=== PATIENT | female | born 2000 | race Hispanic/Latino ===

== ENCOUNTER 2022-10-07 02:09 | Inpatient (IN) | payer OTHER ==
[2022-10-07 02:33] LABS: Analyzer IN Cardio ER; Base Excess (BEa) -28.3 mEq/L (-2.0 to +3.0); CO2 Tension 53.3 mmHg (35.0-45.0); Carboxyhemoglobin (COHb) 0.2 gm% (0.0-3.0); Hemoglobin (Hb) 10.2 g/dL (11.4-15.4); O2 Tension (PaO2), arterial 467.9 mmHg (80.0-100.0); Potassium - ABG Lab 4.56 mmol/L (3.70-5.30)
[2022-10-07] MEDS ORDERED: Sodium Bicarb 50 MEQ/50 ML Abboject 8.4% SYRINGE ONE (02:35)
[2022-10-07] MEDS ORDERED: Calcium Chloride 1 GM/10 ML Abboject SYRINGE ONE ×3 (02:35→07:36)
[2022-10-07 02:38] LABS: #Basophils 0.1 thou/uL (0.0-0.2); #Eosinphils 0.2 thou/uL (0.0-0.7); #Lymphocytes 4.7 thou/uL (1.20-3.40); #Monocytes 0.3 thou/uL (0.11-0.59); #Neutrophils 6.3 thou/uL (1.40-6.50); %Basophils 0.6 % (0.0-1.0); %Eosinophils 2.1 % (0.0-10.0); %Lymphocytes 40.2 % (28.0-48.0); %Monocytes 2.8 % (0.0-4.0); %Neutrophils 54.3 % (31.0-61.0); Hemoglobin 10.9 g/dL (12.0-16.0); Mean Corpuscular HGB CONC 31.3 g/dL (32.0-36.0); Mean Corpuscular Volume 89.5 fl (78.0-102.0); Mean Platelet Volume 10.4 fL (7.4-10.4); Platelet Count 86 10x3/uL (130-400); RBC Distribution Width 18.7 % (11.5-14.5); Red Blood Cell (RBC) Count 3.89 mill/uL (4.00-5.20); White Blood Cell (WBC) Count 11.7 10x3/uL (4.8-10.8)
[2022-10-07] MEDS ORDERED: Midazolam HCl 2 mg/2 ml Vial ONE ×2 (02:38→04:38)
[2022-10-07 02:43] LABS: Actual Bicarbonate (HCO3a) 6.8 mEq/L (22-28); Calcium, Ionized (arterial) 0.72 mmol/L (1.12-1.30); pH, Arterial 6.73 (7.35-7.45)
[2022-10-07 02:44] LABS: ALV-art Gradient 178.475 mmHg (0-20); Puncture Site RBA
[2022-10-07] MEDS ORDERED: Fentanyl CADD 100 ML IV SCH (02:45)
[2022-10-07 02:46] LABS: BHCG - Serum Negative (NEGATIVE); Pregs Control Background? CLEAR/WHITE (CLR/WHITE); Pregs Control Bar Appear? YES (CONTROL BAR)
[2022-10-07 02:48] LABS: INR-International Normal Ratio 1.8; Prothrombin Time 21.7 sec (12.0-14.7)
[2022-10-07 02:49] LABS: PTT 91.9 sec (22.9-36.1)
[2022-10-07 02:55] LABS: ALT (SGPT) 135 U/L (8-55); AST (SGOT) 193 U/L (5-30); Albumin 1.8 g/dL (3.5-5.0); Alkaline Phosphatase 44 U/L (40-100); BUN (Urea Nitrogen) 6 mg/dL (8.4-21.0); Bilirubin, Total Less than 0.2 mg/dL (0.2-1.2); Calc. Creatinine Clearance 0 mL/min (70-130); Chloride 121 mmol/L (98-107); Estimated GFR 120; Globulin 1.5 g/dL (2.4-3.5); Glucose 144 mg/dL (70-105); Protein, Total 3.3 g/dL (6.0-8.3); Sodium 142 mmol/L (136-145)
[2022-10-07 02:59] LABS: Calcium 6.8 mg/dL (7.8-10.44); Carbon Dioxide Less than 8 mmol/L (22-29)
[2022-10-07] MEDS ORDERED: Acetaminophen 325 MG TAB PO PRN (03:24)
[2022-10-07] MEDS ORDERED: Dextrose 5% in Water 1,000 ML IV PRN ×2 (03:24→07:49)
[2022-10-07] MEDS ORDERED: hydrALAZINE 20 MG/ML VIAL SLOW IVP PRN (03:24)
[2022-10-07] MEDS ORDERED: Ondansetron PF 4 MG/2 ML Vial IVP PRN (03:24)
[2022-10-07] MEDS ORDERED: TETANUS, DIPHTHERIA TOX,ADULT (TDVAX) 0.5 ML VIAL IM ONE (03:24)
[2022-10-07] MEDS ORDERED: Dextrose 50% Abboject 50 ML SYRINGE SLOW IVP PRN ×2 (03:24→07:49)
[2022-10-07 03:54] LABS: Analyzer IN Cardio ER; Base Excess (BEa) -19.5 mEq/L (-2.0 to +3.0); CO2 Tension 25.5 mmHg (35.0-45.0); Calcium, Ionized (arterial) 1.47 mmol/L (1.12-1.30); Carboxyhemoglobin (COHb) 0.2 gm% (0.0-3.0); Hemoglobin (Hb) 7.9 g/dL (11.4-15.4); O2 Tension (PaO2), arterial 251.6 mmHg (80.0-100.0); Potassium - ABG Lab 3.91 mmol/L (3.70-5.30)
[2022-10-07] MEDS ORDERED: Lidocaine 1% (PF) 30 ML VIAL ONE (03:59)
[2022-10-07 04:00] LABS: ALV-art Gradient 73.025 mmHg (0-20); Actual Bicarbonate (HCO3a) 8.1 mEq/L (22-28); Puncture Site LBA; pH, Arterial 7.12 (7.35-7.45)
[2022-10-07 04:13] LABS: Hemoglobin 7.5 g/dL (12.0-16.0); Mean Corpuscular HGB CONC 30.9 g/dL (32.0-36.0); Mean Corpuscular Hemoglobin 29.7 pg (25.0-35.0); Mean Corpuscular Volume 96.1 fl (78.0-98.0); Mean Platelet Volume 9.6 fL (7.4-10.4); Platelet Count 65 10x3/uL (130-400); RBC Distribution Width 17.6 % (11.5-14.5); Red Blood Cell (RBC) Count 2.53 mill/uL (4.00-5.20); White Blood Cell (WBC) Count 11.2 10x3/uL (4.8-10.8)
[2022-10-07 04:37] LABS: BUN (Urea Nitrogen) 9 mg/dL (7.0-18.7); Calc. Creatinine Clearance 0 mL/min (70-130); Calcium 11.1 mg/dL (7.8-10.44); Carbon Dioxide Less than 8 mmol/L (22-29); Chloride 115 mmol/L (98-107); Estimated GFR 79; Glucose 93 mg/dL (70-105); Potassium 3.9 mmol/L (3.5-5.1); Sodium 143 mmol/L (136-145)
[2022-10-07 05:01] LABS: Anisocytosis SLIGHT = 6-15 cells (100X) (0-5/hpf); Band 17 % (5-11); Crenated RBC SLIGHT = 1-5 cells (100X) (None Seen); Eosinophils 1 % (0-10); Lymphocytes 35 % (28-48); MDiff Complete? YES; Metamyelocyte 2 % (0-0); Neutrophil 45 % (31-61); Nucleated RBC 2 % (0); Platelet Morphology Comment Appears Decreased; Polychromasia SLIGHT = 2-3 cells (100X) (0-2/hpf)
[2022-10-07] MEDS ORDERED: Norepinephrine 4 MG/4 ML VIAL ONE (05:04)
[2022-10-07] MEDS ORDERED: HUM PROTHROMBIN CPLX(PCC)4FACT 1,000 UNIT in Admixture Fee 1 EACH IV SCH (06:45)
[2022-10-07] MEDS ORDERED: Rocuronium Bromide 10 MG/ML (10ML VIAL) ONE (06:51)
[2022-10-07] MEDS ORDERED: Albumin 5% 500 ML ONE (06:57)
[2022-10-07] MEDS ORDERED: fentaNYL PF 100 MCG/2 ML SYRINGE ONE (07:00)
[2022-10-07] MEDS ORDERED: Sodium Bicarb 50 MEQ/50 ML VIAL ONE (07:36)
[2022-10-07 08:33] LABS: Actual Bicarbonate (HCO3a) 15.3 mEq/L (22-28); Base Excess (BEa) -10.7 mEq/L (-2.0 to +3.0); CO2 Tension 34.6 mmHg (35.0-45.0); Calcium, Ionized (arterial) 1.16 mmol/L (1.12-1.30); Carboxyhemoglobin (COHb) 0.3 gm% (0.0-3.0); Hemoglobin (Hb) 9.5 g/dL (11.4-15.4); O2 Tension (PaO2), arterial 515.5 mmHg (80.0-100.0); Potassium - ABG Lab 3.57 mmol/L (3.70-5.30); pH, Arterial 7.26 (7.35-7.45)
[2022-10-07 08:36] LABS: Puncture Site Arterial Line
[2022-10-07 08:47] LABS: #Lymphocytes 1.6 thou/uL (1.20-3.40); #Neutrophils 10.6 thou/uL (1.40-6.50); %Basophils 0.2 % (0.0-1.0); %Eosinophils 0.1 % (0.0-10.0); %Lymphocytes 11.8 % (28.0-48.0); %Monocytes 7.6 % (0.0-4.0); %Neutrophils 80.3 % (31.0-61.0); Hemoglobin 9.1 g/dL (12.0-16.0); INR-International Normal Ratio 1.5; Mean Corpuscular HGB CONC 32.8 g/dL (32.0-36.0); Mean Corpuscular Hemoglobin 29.5 pg (25.0-35.0); Mean Corpuscular Volume 89.9 fl (78.0-98.0); Mean Platelet Volume 8.1 fL (7.4-10.4); PTT 51.4 sec (22.9-36.1); Platelet Count 73 10x3/uL (130-400); RBC Distribution Width 14.1 % (11.5-14.5); Red Blood Cell (RBC) Count 3.07 mill/uL (4.00-5.20); White Blood Cell (WBC) Count 13.2 10x3/uL (4.8-10.8)
[2022-10-07 09:41] LABS: Base Excess (BEa) -10.7 mEq/L (-2.0 to +3.0); CO2 Tension 27.6 mmHg (35.0-45.0); Calcium, Ionized (arterial) 1.12 mmol/L (1.12-1.30); Carboxyhemoglobin (COHb) 0.3 gm% (0.0-3.0); Hemoglobin (Hb) 9.1 g/dL (11.4-15.4); O2 Tension (PaO2), arterial 143.7 mmHg (80.0-100.0); pH, Arterial 7.33 (7.35-7.45)
[2022-10-07 09:57] LABS: Actual Bicarbonate (HCO3a) 14.1 mEq/L (22-28); Puncture Site Arterial Line
[2022-10-07 10:21] LABS: Lactic Acid 11.5 mmol/L (0.5-2.2)
[2022-10-07 10:36] LABS: ALT (SGPT) 235 U/L (8-55); AST (SGOT) 421 U/L (5-34); Albumin 3.2 g/dL (3.5-5.0); Alkaline Phosphatase 57 U/L (40-100); Anion Gap 24 mmol/L (10-20); BUN (Urea Nitrogen) 13 mg/dL (7.0-18.7); Bilirubin, Direct 0.2 mg/dL (0.1-0.3); Bilirubin, Total 0.3 mg/dL (0.2-1.2); Calc. Creatinine Clearance 0 mL/min (70-130); Calcium 8.9 mg/dL (7.8-10.44); Carbon Dioxide 14 mmol/L (22-29); Chloride 117 mmol/L (98-107); Estimated GFR 64; Glucose 66 mg/dL (70-105); Magnesium 1.6 mg/dL (1.7-2.2); Phosphorus 5.8 mg/dL (2.3-4.7); Potassium 3.5 mmol/L (3.5-5.1); Protein, Total 4.8 g/dL (6.0-8.3); Sodium 151 mmol/L (136-145)
[2022-10-07] MEDS: Sodium Chloride 0.9% 1,000 ML IV SCH ×2 (10:45→13:05)
[2022-10-07] MEDS: Famotidine 20 MG TAB PO SCH ×2 (10:46→21:57)
[2022-10-07] MEDS ORDERED: Iopamidol 370 76% 50 ML VIAL FS ONE (11:08)
[2022-10-07] MEDS ORDERED: Iopamidol 370 76% 100 ML VIAL ONE (11:08)
[2022-10-07 11:20] LABS: Actual Bicarbonate (HCO3a) 15.7 mEq/L (22-28); Base Excess (BEa) -7.8 mEq/L (-2.0 to +3.0); CO2 Tension 25.3 mmHg (35.0-45.0); Carboxyhemoglobin (COHb) 0.3 gm% (0.0-3.0); Hemoglobin (Hb) 8.5 g/dL (11.4-15.4); O2 Tension (PaO2), arterial 150.3 mmHg (80.0-100.0); pH, Arterial 7.41 (7.35-7.45)
[2022-10-07 11:28] LABS: ALV-art Gradient 103.275 mmHg (0-20); Puncture Site Arterial Line
[2022-10-07] MEDS: CEFAZOLIN 2 GM in Sodium Chloride 0.9% 100 ML IVPB SCH ×2 (12:26→21:58)
[2022-10-07] MEDS ORDERED: Sodium Bicarbonate 150 MEQ in Dextrose 5% in Water 1,000 ML IV SCH (12:30)
[2022-10-07] MEDS ORDERED: Magnesium Sulfate In Water 4 GM in Premix Bag 1 BAG IVPB SCH (12:30)
[2022-10-07] MEDS: Morphine 4 MG/ML VIAL SLOW IVP PRN ×2 (12:34→15:09)
[2022-10-07 12:53] LABS: Hemoglobin 7.8 g/dL (12.0-16.0); Mean Corpuscular HGB CONC 34.4 g/dL (32.0-36.0); Mean Corpuscular Hemoglobin 30.2 pg (25.0-35.0); Mean Corpuscular Volume 87.6 fl (78.0-98.0); Mean Platelet Volume 9.3 fL (7.4-10.4); Platelet Count 68 10x3/uL (130-400); RBC Distribution Width 14.4 % (11.5-14.5); White Blood Cell (WBC) Count 19.6 10x3/uL (4.8-10.8)
[2022-10-07 13:01] LABS: SARS-CoV-2 NAA Rapid Test Not Detected (NotDetected)
[2022-10-07 13:15] LABS: Band 13 % (5-11); Lymphocytes 11 % (28-48); MDiff Complete? YES; Metamyelocyte 2 % (0-0); Monocytes 1 % (0-4); Neutrophil 73 % (31-61); Nucleated RBC 1 % (0); Platelet Morphology Comment Appears Decreased; Polychromasia SLIGHT = 2-3 cells (100X) (0-2/hpf)
[2022-10-07] MEDS ORDERED: Iopamidol-370 76% 500 ML 1 ML ONE ×2 (13:15→13:21)
[2022-10-07] MEDS ORDERED: FLU VACC QS2022-23(6MOS UP)/PF 60 MCG/0.5 ML SYRINGE IM ONE (13:45)
[2022-10-07 14:43] LABS: Troponin I 4.524 ng/mL (< 0.028)
[2022-10-07] MEDS ORDERED: Piperacillin/Tazobactam 3.375 GM in Sodium Chloride 0.9% 100 ML IVPB SCH ×2 (15:15→16:15)
[2022-10-07 17:32] LABS: Actual Bicarbonate (HCO3a) 12.6 mEq/L (22-28); Base Excess (BEa) -13.8 mEq/L (-2.0 to +3.0); CO2 Tension 31.2 mmHg (35.0-45.0); Hemoglobin (Hb) 8.2 g/dL (11.4-15.4); O2 Tension (PaO2), arterial 363.1 mmHg (80.0-100.0); pH, Arterial 7.22 (7.35-7.45)
[2022-10-07 17:33] LABS: Analyzer IN Cardio OR; Calcium, Ionized (arterial) 0.98 mmol/L (1.12-1.30); Carboxyhemoglobin (COHb) 0.3 gm% (0.0-3.0); Potassium - ABG Lab 3.43 mmol/L (3.70-5.30); Puncture Site Arterial Line
[2022-10-07 18:21] LABS: Hemoglobin 9.8 g/dL (12.0-16.0); Mean Corpuscular HGB CONC 34.6 g/dL (32.0-36.0); Mean Corpuscular Hemoglobin 30.4 pg (25.0-35.0); Mean Corpuscular Volume 87.7 fl (78.0-98.0); Mean Platelet Volume 10.3 fL (7.4-10.4); Platelet Count 46 10x3/uL (130-400); Red Blood Cell (RBC) Count 3.24 mill/uL (4.00-5.20); White Blood Cell (WBC) Count 20.9 10x3/uL (4.8-10.8)
[2022-10-07 18:33] LABS: INR-International Normal Ratio 1.4
[2022-10-07 18:56] LABS: Band 22 % (5-11); Lymphocytes 8 % (28-48); MDiff Complete? YES; Metamyelocyte 1 % (0-0); Monocytes 2 % (0-4); Neutrophil 67 % (31-61); Nucleated RBC 3 % (0); Platelet Morphology Comment Appears Decreased; Polychromasia SLIGHT = 2-3 cells (100X) (0-2/hpf)
[2022-10-07 18:59] LABS: ALT (SGPT) 219 U/L (8-55); AST (SGOT) 858 U/L (5-34); Alkaline Phosphatase 58 U/L (40-100); Anion Gap 19 mmol/L (10-20); BUN (Urea Nitrogen) 21 mg/dL (7.0-18.7); Bilirubin, Total 0.7 mg/dL (0.2-1.2); Calc. Creatinine Clearance 52 mL/min (70-130); Carbon Dioxide 18 mmol/L (22-29); Chloride 117 mmol/L (98-107); Estimated GFR 34; Globulin 1.9 g/dL (2.4-3.5); Glucose 137 mg/dL (70-105); Magnesium 3.1 mg/dL (1.7-2.2); Phosphorus 6.6 mg/dL (2.3-4.7); Potassium 3.8 mmol/L (3.5-5.1); Protein, Total 4.9 g/dL (6.0-8.3); Sodium 150 mmol/L (136-145)
[2022-10-07 19:09] LABS: CK (CPK) 18632 U/L (29-168)
[2022-10-07 19:34] LABS: Troponin I 3.487 ng/mL (< 0.028)
[2022-10-07 21:21] LABS: Hemoglobin 9.7 g/dL (12.0-16.0); Mean Corpuscular HGB CONC 34.1 g/dL (32.0-36.0); Mean Corpuscular Hemoglobin 29.9 pg (25.0-35.0); Mean Corpuscular Volume 87.5 fl (78.0-98.0); Mean Platelet Volume 11.1 fL (7.4-10.4); Platelet Count 45 10x3/uL (130-400); RBC Distribution Width 14.1 % (11.5-14.5); Red Blood Cell (RBC) Count 3.26 mill/uL (4.00-5.20); White Blood Cell (WBC) Count 22.4 10x3/uL (4.8-10.8)
[2022-10-07 21:22] LABS: Band 21 % (5-11); Lymphocytes 8 % (28-48); MDiff Complete? YES; Metamyelocyte 1 % (0-0); Monocytes 5 % (0-4); Neutrophil 65 % (31-61); Platelet Morphology Comment Appears Decreased; RBC Morphology Normal
[2022-10-07] MEDS: Piperacillin/Tazobactam 3.375 GM in Sodium Chloride 0.9% 100 ML IVPB SCH (21:58)
[2022-10-07] MEDS: Insulin Regular 300 UNITS/3 ML VIAL SC PRN (21:58)
[2022-10-08 01:47] LABS: Band 28 % (5-11); Hemoglobin 9.8 g/dL (12.0-16.0); Hypochromia SLIGHT = 6-15 cells (100X) (0-5/hpf); Lymphocytes 10 % (28-48); MDiff Complete? YES; Mean Corpuscular HGB CONC 34.3 g/dL (32.0-36.0); Mean Corpuscular Hemoglobin 30.1 pg (25.0-35.0); Mean Corpuscular Volume 87.7 fl (78.0-98.0); Mean Platelet Volume 12.1 fL (7.4-10.4); Monocytes 4 % (0-4); Neutrophil 58 % (31-61); Platelet Count 43 10x3/uL (130-400); Platelet Morphology Comment Appears Decreased; RBC Distribution Width 14.2 % (11.5-14.5); Red Blood Cell (RBC) Count 3.26 mill/uL (4.00-5.20); White Blood Cell (WBC) Count 22.7 10x3/uL (4.8-10.8)
[2022-10-08] MEDS: Dextrose 5 %-0.45 % NaCl 1,000 ML IV SCH ×2 (04:39→16:21)
[2022-10-08] MEDS: Insulin Regular 300 UNITS/3 ML VIAL SC PRN ×3 (04:40→16:47)
[2022-10-08] MEDS: CEFAZOLIN 2 GM in Sodium Chloride 0.9% 100 ML IVPB SCH (05:15)
[2022-10-08] MEDS: Piperacillin/Tazobactam 3.375 GM in Sodium Chloride 0.9% 100 ML IVPB SCH ×3 (05:15→20:57)
[2022-10-08 05:28] LABS: INR-International Normal Ratio 1.3; Mean Corpuscular HGB CONC 33.7 g/dL (32.0-36.0); Mean Corpuscular Hemoglobin 29.5 pg (25.0-35.0); Mean Corpuscular Volume 87.7 fl (78.0-98.0); Mean Platelet Volume 7.3 fL (7.4-10.4); PTT 35.4 sec (22.9-36.1); Platelet Count 44 10x3/uL (130-400); Prothrombin Time 17.1 sec (12.0-14.7); RBC Distribution Width 14.4 % (11.5-14.5); Red Blood Cell (RBC) Count 3.38 mill/uL (4.00-5.20); White Blood Cell (WBC) Count 24.2 10x3/uL (4.8-10.8)
[2022-10-08 05:37] LABS: Anion Gap 14 mmol/L (10-20); BUN (Urea Nitrogen) 22 mg/dL (7.0-18.7); Calc. Creatinine Clearance 53 mL/min (70-130); Carbon Dioxide 24 mmol/L (22-29); Chloride 119 mmol/L (98-107); Estimated GFR 35; Glucose 161 mg/dL (70-105); Magnesium 2.8 mg/dL (1.7-2.2); Phosphorus 5.1 mg/dL (2.3-4.7); Potassium 3.5 mmol/L (3.5-5.1); Sodium 153 mmol/L (136-145)
[2022-10-08 06:03] LABS: Band 32 % (5-11); Hypochromia SLIGHT = 6-15 cells (100X) (0-5/hpf); Lymphocytes 10 % (28-48); MDiff Complete? YES; Monocytes 2 % (0-4); Neutrophil 56 % (31-61); Platelet Morphology Comment Appears Decreased
[2022-10-08] MEDS ORDERED: NOREPINEPHRINE 8 MG/250 ML-D5W 250 ML ONE (07:02)
[2022-10-08] MEDS ORDERED: NOREPINEPHRINE 8 MG/250 ML-D5W 250 ML IVPB SCH (07:15)
[2022-10-08] MEDS ORDERED: Albumin 5% 500 ML ONE (07:21)
[2022-10-08] MEDS ORDERED: ALBUMIN 5% 25 GM/500 ML BAG IVPB SCH (08:30)
[2022-10-08] MEDS: Levothyroxine Sodium 400 MCG in Sodium Chloride 0.9% 100 ML IVPB SCH ×2 (09:11→21:09)
[2022-10-08 09:12] LABS: Hemoglobin 8.2 g/dL (12.0-16.0); Mean Corpuscular HGB CONC 34.9 g/dL (32.0-36.0); Mean Corpuscular Hemoglobin 31.2 pg (25.0-35.0); Mean Corpuscular Volume 89.5 fl (78.0-98.0); RBC Distribution Width 14.5 % (11.5-14.5); Red Blood Cell (RBC) Count 2.63 mill/uL (4.00-5.20)
[2022-10-08 09:39] LABS: Band 5 % (5-11); Lymphocytes 4 % (28-48); MDiff Complete? YES; Mean Platelet Volume 12.6 fL (7.4-10.4); Monocytes 8 % (0-4); Neutrophil 83 % (31-61); Platelet Count 38 10x3/uL (130-400); Platelet Morphology Comment Appears Decreased; White Blood Cell (WBC) Count 20.2 10x3/uL (4.8-10.8)
[2022-10-08 10:25] VITALS: BMI 27.5
[2022-10-08] MEDS: Famotidine 20 MG TAB PO SCH ×2 (10:54→20:57)
[2022-10-08 12:18] LABS: #Lymphocytes 1.6 thou/uL (1.20-3.40); #Monocytes 0.6 thou/uL (0.11-0.59); #Neutrophils 12.2 thou/uL (1.40-6.50); %Lymphocytes 10.9 % (28.0-48.0); %Monocytes 3.8 % (0.0-4.0); %Neutrophils 85.3 % (31.0-61.0); Hemoglobin 7.5 g/dL (12.0-16.0); Mean Corpuscular HGB CONC 34.4 g/dL (32.0-36.0); Mean Corpuscular Hemoglobin 30.7 pg (25.0-35.0); Mean Corpuscular Volume 89.3 fl (78.0-98.0); Mean Platelet Volume 12.3 fL (7.4-10.4); Platelet Count 30 10x3/uL (130-400); RBC Distribution Width 14.5 % (11.5-14.5); Red Blood Cell (RBC) Count 2.43 mill/uL (4.00-5.20); White Blood Cell (WBC) Count 14.3 10x3/uL (4.8-10.8)
[2022-10-08] MEDS: Sodium Bicarbonate 150 MEQ in Dextrose 5% in Water 1,000 ML IV SCH ×2 (14:34→21:48)
[2022-10-08 16:42] LABS: #Lymphocytes 1.7 thou/uL (1.20-3.40); #Monocytes 0.4 thou/uL (0.11-0.59); #Neutrophils 10.3 thou/uL (1.40-6.50); %Basophils 0.2 % (0.0-1.0); %Eosinophils 0.2 % (0.0-10.0); %Lymphocytes 13.8 % (28.0-48.0); %Neutrophils 82.9 % (31.0-61.0); Hemoglobin 7.2 g/dL (12.0-16.0); Mean Corpuscular HGB CONC 33.7 g/dL (32.0-36.0); Mean Corpuscular Hemoglobin 29.9 pg (25.0-35.0); Mean Corpuscular Volume 88.6 fl (78.0-98.0); Mean Platelet Volume 13.3 fL (7.4-10.4); Platelet Count 24 10x3/uL (130-400); RBC Distribution Width 14.4 % (11.5-14.5); Red Blood Cell (RBC) Count 2.42 mill/uL (4.00-5.20); White Blood Cell (WBC) Count 12.4 10x3/uL (4.8-10.8)
[2022-10-09 00:54] LABS: #Eosinphils 0.2 thou/uL (0.0-0.7); #Lymphocytes 1.8 thou/uL (1.20-3.40); #Monocytes 0.4 thou/uL (0.11-0.59); #Neutrophils 7.4 thou/uL (1.40-6.50); %Basophils 0.4 % (0.0-1.0); %Eosinophils 1.6 % (0.0-10.0); %Lymphocytes 18.4 % (28.0-48.0); %Monocytes 4.4 % (0.0-4.0); %Neutrophils 75.3 % (31.0-61.0); Hemoglobin 7.8 g/dL (12.0-16.0); Mean Corpuscular HGB CONC 34.7 g/dL (32.0-36.0); Mean Corpuscular Hemoglobin 31.1 pg (25.0-35.0); Mean Corpuscular Volume 89.8 fl (78.0-98.0); Mean Platelet Volume 14.1 fL (7.4-10.4); Platelet Count 17 10x3/uL (130-400); RBC Distribution Width 13.9 % (11.5-14.5); Red Blood Cell (RBC) Count 2.51 mill/uL (4.00-5.20); White Blood Cell (WBC) Count 9.9 10x3/uL (4.8-10.8)
[2022-10-09] MEDS: Levothyroxine Sodium 400 MCG in Sodium Chloride 0.9% 100 ML IVPB SCH ×2 (01:47→05:32)
[2022-10-09 03:27] VITALS: BP 102/52
[2022-10-09] MEDS: Piperacillin/Tazobactam 3.375 GM in Sodium Chloride 0.9% 100 ML IVPB SCH (04:17)
[2022-10-09 05:28] LABS: Lactic Acid 2.2 mmol/L (0.5-2.2)
[2022-10-09] MEDS: Sodium Bicarbonate 150 MEQ in Dextrose 5% in Water 1,000 ML IV SCH (05:32)
[2022-10-09 05:58] LABS: CK (CPK) 12108 U/L (29-168)
[2022-10-09 05:59] LABS: Anion Gap 11 mmol/L (10-20); BUN (Urea Nitrogen) 22 mg/dL (7.0-18.7); Calc. Creatinine Clearance 69 mL/min (70-130); Calcium 7.5 mg/dL (7.8-10.44); Carbon Dioxide 27 mmol/L (22-29); Chloride 118 mmol/L (98-107); Estimated GFR 47; Glucose 144 mg/dL (70-105); Magnesium 2.4 mg/dL (1.7-2.2); Phosphorus 2.9 mg/dL (2.3-4.7); Potassium 2.8 mmol/L (3.5-5.1); Sodium 153 mmol/L (136-145)
[2022-10-09 06:27] LABS: Band 13 % (5-11); Eosinophils 3 % (0-10); Hemoglobin 7.4 g/dL (12.0-16.0); Lymphocytes 20 % (28-48); MDiff Complete? YES; Mean Corpuscular HGB CONC 33.7 g/dL (32.0-36.0); Mean Corpuscular Hemoglobin 30.3 pg (25.0-35.0); Mean Corpuscular Volume 89.8 fl (78.0-98.0); Mean Platelet Volume 14.8 fL (7.4-10.4); Monocytes 5 % (0-4); Neutrophil 59 % (31-61); Nucleated RBC 1 % (0); Platelet Count 15 10x3/uL (130-400); Platelet Morphology Comment Appears Decreased; RBC Morphology Normal; Red Blood Cell (RBC) Count 2.46 mill/uL (4.00-5.20); White Blood Cell (WBC) Count 8.9 10x3/uL (4.8-10.8)
[2022-10-09 06:51] LABS: Actual Bicarbonate (HCO3a) 29.5 mEq/L (22-28); CO2 Tension 38.4 mmHg (35.0-45.0); Calcium, Ionized (arterial) 1.07 mmol/L (1.12-1.30); Carboxyhemoglobin (COHb) 0.2 gm% (0.0-3.0); Hemoglobin (Hb) 7.6 g/dL (11.4-15.4); O2 Tension (PaO2), arterial 137.5 mmHg (80.0-100.0)
[2022-10-09 06:55] LABS: Potassium - ABG Lab 2.54 mmol/L (3.70-5.30)
[2022-10-09 06:56] LABS: Puncture Site Arterial Line
[2022-10-09] MEDS ORDERED: Potassium Chloride 40 MEQ in Sodium Chloride 0.9% 250 ML 250 ML IVPB SCH (08:00)
[2022-10-09 08:25] LABS: Mean Corpuscular HGB CONC 33.7 g/dL (32.0-36.0); Mean Corpuscular Hemoglobin 30.5 pg (25.0-35.0); Mean Corpuscular Volume 90.6 fl (78.0-98.0); Mean Platelet Volume 15.2 fL (7.4-10.4); Platelet Count 17 10x3/uL (130-400); RBC Distribution Width 14.1 % (11.5-14.5); Red Blood Cell (RBC) Count 2.61 mill/uL (4.00-5.20); White Blood Cell (WBC) Count 10.3 10x3/uL (4.8-10.8)
[2022-10-09] MEDS ORDERED: Potassium Chloride 40 MEQ in Premix Bag 1 BAG IVPB SCH (08:30)
[2022-10-09] MEDS ORDERED: Potassium Chloride 60 MEQ in Sodium Chloride 0.9% 250 ML 250 ML IVPB SCH (08:30)
[2022-10-09] MEDS ORDERED: Sodium Bicarbonate 100 MEQ in Dextrose 5% in Water 1,000 ML IV SCH (08:30)
[2022-10-09 09:17] LABS: #Eosinphils 0.3 thou/uL (0.0-0.7); #Lymphocytes 1.3 thou/uL (1.20-3.40); #Monocytes 0.4 thou/uL (0.11-0.59); #Neutrophils 8.2 thou/uL (1.40-6.50); %Basophils 0.4 % (0.0-1.0); %Eosinophils 3.2 % (0.0-10.0); %Neutrophils 79.5 % (31.0-61.0); Band 40 % (5-11); Eosinophils 4 % (0-10); Lymphocytes 13 % (28-48); MDiff Complete? YES; Monocytes 6 % (0-4); Neutrophil 37 % (31-61); Platelet Morphology Comment Appears Decreased; Polychromasia SLIGHT = 2-3 cells (100X) (0-2/hpf)
[2022-10-09 10:07] VITALS: TEMP 98.1
[2022-10-09] MEDS ORDERED: Famotidine/PF 20 mg/2ml Vial SLOW IVP SCH ×2 (11:00→21:00)
[2022-10-09] MEDS: Famotidine 20 MG TAB PO SCH (11:38)
== END 2022-10-09 11:53 | disposition expired | DRG 957 ==
LOC: ERS 02:09 → EDBD 02:09 → CCL 04:56 → UNDOADMIN 07:52 → CCU 07:52
PROVIDERS: ADMIT Specialist; ATTEND Surgery
PROC: 0JQ00ZZ Repair Scalp Subcutaneous Tissue and Fascia, Open Approach (ICD-10-PCS; principal; 2022-10-07)
PROC: 04LF3DZ Occlusion of Left Internal Iliac Artery with Intraluminal Device, Percutaneous Approach (ICD-10-PCS; 2022-10-07)
PROC: 04LE3DZ Occlusion of Right Internal Iliac Artery with Intraluminal Device, Percutaneous Approach (ICD-10-PCS; 2022-10-07)
PROC: B4101ZZ Fluoroscopy of Abdominal Aorta using Low Osmolar Contrast (ICD-10-PCS; 2022-10-07)
PROC: B41J1ZZ Fluoroscopy of Other Lower Arteries using Low Osmolar Contrast (ICD-10-PCS; 2022-10-07)
PROC: 05H633Z Insertion of Infusion Device into Left Subclavian Vein, Percutaneous Approach (ICD-10-PCS; 2022-10-07)
PROC: 30233K1 Transfusion of Nonautologous Frozen Plasma into Peripheral Vein, Percutaneous Approach (ICD-10-PCS; 2022-10-07)
PROC: 30233N1 Transfusion of Nonautologous Red Blood Cells into Peripheral Vein, Percutaneous Approach (ICD-10-PCS; 2022-10-07)
PROC: 30233M1 Transfusion of Nonautologous Plasma Cryoprecipitate into Peripheral Vein, Percutaneous Approach (ICD-10-PCS; 2022-10-07)
PROC: 6A551Z2 Pheresis of Platelets, Multiple (ICD-10-PCS; 2022-10-07)
PROC: 5A1945Z Respiratory Ventilation, 24-96 Consecutive Hours (ICD-10-PCS; 2022-10-07)
DX: S06.1X9A Traumatic cerebral edema with loss of consciousness of unspecified duration, initial encounter (principal); S32.401A Unspecified fracture of right acetabulum, initial encounter for closed fracture; D65 Disseminated intravascular coagulation [defibrination syndrome]; S72.302B Unspecified fracture of shaft of left femur, initial encounter for open fracture type I or II; I77.71 Dissection of carotid artery; T79.4XXA Traumatic shock, initial encounter; J96.00 Acute respiratory failure, unspecified whether with hypoxia or hypercapnia; S32.402A Unspecified fracture of left acetabulum, initial encounter for closed fracture; S32.19XA Other fracture of sacrum, initial encounter for closed fracture; S22.42XA Multiple fractures of ribs, left side, initial encounter for closed fracture; S32.058A Other fracture of fifth lumbar vertebra, initial encounter for closed fracture; S32.038A Other fracture of third lumbar vertebra, initial encounter for closed fracture; S15.092A Other specified injury of left carotid artery, initial encounter; D62 Acute posthemorrhagic anemia; E87.21 Acute metabolic acidosis; N17.9 Acute kidney failure, unspecified; S36.92XA Contusion of unspecified intra-abdominal organ, initial encounter; S27.322A Contusion of lung, bilateral, initial encounter; S06.6X9A Traumatic subarachnoid hemorrhage with loss of consciousness of unspecified duration, initial encounter; R40.20 Unspecified coma; S02.113A Unspecified occipital condyle fracture, initial encounter for closed fracture; I95.9 Hypotension, unspecified; S08.0XXA Avulsion of scalp, initial encounter; E87.6 Hypokalemia; E83.42 Hypomagnesemia; R40.2432 Glasgow coma scale score 3-8, at arrival to emergency department; S02.2XXA Fracture of nasal bones, initial encounter for closed fracture; S53.102A Unspecified subluxation of left ulnohumeral joint, initial encounter; Z20.822 Contact with and (suspected) exposure to COVID-19; V89.2XXA Person injured in unspecified motor-vehicle accident, traffic, initial encounter
CPT/HCPCS: 36415; 36416; 36430; 36600; 37244; 70450; 70496; 70498; 71045; 71260; 72125; 72170; 74177; 75625; 78610; 80048; 80053; 82550; 82805; 83605; 83735; 83930; 84100; 84484; 84703; 85025; 85384; 85610; 85730; 86850; 86900; 86901; 93005; 93010; 94002; 94003; A9521; C1758; C1769; G0390; J1815; J2001; J2250; J2270; J2543; J2597; J3010; J3475; J3480; J3490; J7042; J7050; J7070; J7168; P9012; P9016; P9035; P9045; P9048; P9059; Q9967; S0028; U0002

== ENCOUNTER 2022-10-09 11:53 | Day surgery (SDC) | payer OTHER ==
[2022-10-09] MEDS ORDERED: Levothyroxine Sodium 400 MCG in Sodium Chloride 0.9% 100 ML IVPB SCH (15:00)
[2022-10-09 15:36] LABS: Actual Bicarbonate (HCO3a) 27.4 mEq/L (22-28); Base Excess (BEa) 1.9 mEq/L (-2.0 to +3.0); Calcium, Ionized (arterial) 1.12 mmol/L (1.12-1.30); Carboxyhemoglobin (COHb) 0.1 gm% (0.0-3.0); Hemoglobin (Hb) 8.9 g/dL (11.4-15.4); O2 Tension (PaO2), arterial 103.3 mmHg (80.0-100.0); Potassium - ABG Lab 3.71 mmol/L (3.70-5.30); pH, Arterial 7.38 (7.35-7.45)
[2022-10-09 15:37] LABS: Puncture Site Arterial Line
[2022-10-09] MEDS ORDERED: NOREPINEPHRINE 8 MG/250 ML-D5W 250 ML IVPB SCH (15:45)
[2022-10-09 15:54] LABS: Hemoglobin 8.6 g/dL (12.0-16.0); Mean Corpuscular HGB CONC 33.6 g/dL (32.0-36.0); Mean Corpuscular Hemoglobin 30.4 pg (25.0-35.0); Mean Corpuscular Volume 90.4 fl (78.0-98.0); Mean Platelet Volume 15.8 fL (7.4-10.4); Platelet Count 21 10x3/uL (130-400); RBC Distribution Width 14.2 % (11.5-14.5); Red Blood Cell (RBC) Count 2.84 mill/uL (4.00-5.20); White Blood Cell (WBC) Count 11.2 10x3/uL (4.8-10.8)
[2022-10-09 15:55] VITALS: BMI 28.4
[2022-10-09] MEDS ORDERED: Hydrocortisone Sod Succ/PF 500 mg/4 ml Vial SLOW IVP SCH (16:00)
[2022-10-09] MEDS ORDERED: Magnesium 2 GM/50 ML(in water) 2 GM in Premix Bag 1 BAG IVPB SCH (16:00)
[2022-10-09] MEDS ORDERED: Potassium Phosphate 30 MMOL in Sodium Chloride 0.9% 100 ML IVPB SCH (16:00)
[2022-10-09] MEDS ORDERED: Magnesium 2 GM/50 ML(in water) 4 GM in Premix Bag 1 BAG IVPB SCH (16:00)
[2022-10-09] MEDS ORDERED: SODIUM PHOSPHATE IVPB SCH (16:00)
[2022-10-09] MEDS ORDERED: SODIUM CHLORIDE 0.9% IVPB SCH ×2 (16:00)
[2022-10-09] MEDS ORDERED: HUMULIN R 100 UNITS in Sodium Chloride 0.9% 100 ML IVPB SCH (16:00)
[2022-10-09] MEDS ORDERED: Calcium Gluconate 13.8 MEQ in Sodium Chloride 0.9% 100 ML IVPB SCH (16:00)
[2022-10-09] MEDS ORDERED: Sodium Phosphate 20 MMOL in Sodium Chloride 0.9% 100 ML IVPB SCH (16:00)
[2022-10-09] MEDS ORDERED: Potassium Chloride 20 MEQ in Premix Bag 1 BAG IVPB SCH (16:00)
[2022-10-09] MEDS ORDERED: Sodium Phosphate 30 MMOL in Sodium Chloride 0.9% 100 ML IVPB SCH (16:00)
[2022-10-09] MEDS ORDERED: POTASSIUM PHOSPHATE IVPB SCH (16:00)
[2022-10-09] MEDS ORDERED: Calcium Gluconate 9.2 MEQ in Sodium Chloride 0.9% 100 ML IVPB SCH (16:00)
[2022-10-09] MEDS ORDERED: Refresh Lacri-lube Opth Oint 7 GM TUBE FS SCH (16:00)
[2022-10-09 16:05] LABS: Hemoglobin A1c 5.5 % (4.0-6.0); INR-International Normal Ratio 1.2; PTT 33.7 sec (22.9-36.1)
[2022-10-09 16:13] LABS: Lactic Acid 1.9 mmol/L (0.5-2.2)
[2022-10-09 16:15] LABS: ALT (SGPT) 676 U/L (8-55); AST (SGOT) 1060 U/L (5-34); Albumin 3.1 g/dL (3.5-5.0); Alkaline Phosphatase 62 U/L (40-100); Anion Gap 8 mmol/L (10-20); BUN (Urea Nitrogen) 17 mg/dL (7.0-18.7); Bilirubin, Total 0.7 mg/dL (0.2-1.2); Calc. Creatinine Clearance 82 mL/min (70-130); Calcium 7.9 mg/dL (7.8-10.44); Carbon Dioxide 28 mmol/L (22-29); Chloride 120 mmol/L (98-107); Estimated GFR 58; Globulin 2.2 g/dL (2.4-3.5); Glucose 155 mg/dL (70-105); Phosphorus 2.8 mg/dL (2.3-4.7); Potassium 3.8 mmol/L (3.5-5.1); Protein, Total 5.3 g/dL (6.0-8.3)
[2022-10-09 16:15] LABS: Bilirubin Negative (Negative); Blood, Urine Large (Negative); Glucose, Urine (Dipstick) 500 mg/dL (Negative); Ketone, Urine Negative (Negative); Leukocyte Negative (Negative); Nitrite Negative (Negative); Protein, Urine (Dipstick) 100 mg/dL (Neg-Trace); Specific Gravity, Urine 1.015 (1.005-1.030); Urobilinogen 0.2 mg/dL (Less than 2); pH, Urine 8.5 (5.0-9.0)
[2022-10-09 16:16] LABS: Clarity Hazy (Clear)
[2022-10-09 16:16] LABS: Bilirubin, Direct 0.3 mg/dL (0.1-0.3)
[2022-10-09 16:21] LABS: CKMB 43.3 ng/mL (0-6.6); Sodium 152 mmol/L (136-145)
[2022-10-09 16:28] LABS: Band 14 % (5-11); Lymphocytes 13 % (28-48); MDiff Complete? YES; Monocytes 3 % (0-4); Neutrophil 70 % (31-61); Platelet Morphology Comment Appears Decreased; Polychromasia SLIGHT = 2-3 cells (100X) (0-2/hpf); Spherocytes SLIGHT = 1-5 cells (100X) (None Seen); Troponin I 5.703 ng/mL (< 0.028)
[2022-10-09] MEDS: Vasopressin 20 UNIT, Admixture Fee 1 EACH in Sodium Chloride 0.9% 50 ML IV SCH (16:45)
[2022-10-09] MEDS: Phytonadione 10 MG/ML AMP SLOW IVP SCH ×2 (17:35→20:09)
[2022-10-09] MEDS: Piperacillin/Tazobactam 3.375 GM in Sodium Chloride 0.9% 100 ML IVPB SCH ×2 (17:39→23:59)
[2022-10-09] MEDS: Albuterol Sulfate 2.5 mg/0.5 ml Neb NEB SCH ×2 (19:07→23:25)
[2022-10-09] MEDS: Phenylephrine 40 MG/NS 250 ML 40 MG in Premix Bag 1 BAG IVPB SCH (20:09)
[2022-10-09] MEDS: Sodium Chloride 0.45% 1,000 ML IV SCH (20:31)
[2022-10-09 21:33] LABS: Actual Bicarbonate (HCO3a) 24.4 mEq/L (22-28); Base Excess (BEa) -1.1 mEq/L (-2.0 to +3.0); CO2 Tension 44.2 mmHg (35.0-45.0); Calcium, Ionized (arterial) 1.15 mmol/L (1.12-1.30); Carboxyhemoglobin (COHb) 0.3 gm% (0.0-3.0); Hemoglobin (Hb) 9.1 g/dL (11.4-15.4); Potassium - ABG Lab 3.47 mmol/L (3.70-5.30); pH, Arterial 7.36 (7.35-7.45)
[2022-10-09 21:34] LABS: O2 Tension (PaO2), arterial 50.9 mmHg (80.0-100.0)
[2022-10-09 21:35] LABS: Puncture Site L RAD
[2022-10-09 22:02] LABS: INR-International Normal Ratio 1.2; PTT 34.4 sec (22.9-36.1); Prothrombin Time 15.6 sec (12.0-14.7)
[2022-10-09 22:05] LABS: Lactic Acid 2.6 mmol/L (0.5-2.2)
[2022-10-09 22:11] LABS: ALT (SGPT) 782 U/L (8-55); AST (SGOT) 1030 U/L (5-34); Albumin 3.2 g/dL (3.5-5.0); Alkaline Phosphatase 64 U/L (40-100); Anion Gap 12 mmol/L (10-20); BUN (Urea Nitrogen) 15 mg/dL (7.0-18.7); Bilirubin, Direct 0.4 mg/dL (0.1-0.3); Bilirubin, Total 0.9 mg/dL (0.2-1.2); Calc. Creatinine Clearance 78 mL/min (70-130); Calcium 8.3 mg/dL (7.8-10.44); Carbon Dioxide 23 mmol/L (22-29); Chloride 122 mmol/L (98-107); Estimated GFR 55; Globulin 2.2 g/dL (2.4-3.5); Glucose 184 mg/dL (70-105); Lipase 484 U/L (8-78); Phosphorus 2.5 mg/dL (2.3-4.7); Potassium 3.6 mmol/L (3.5-5.1); Protein, Total 5.4 g/dL (6.0-8.3)
[2022-10-09 22:14] LABS: CKMB 29.6 ng/mL (0-6.6)
[2022-10-09 22:18] LABS: Critical Call Chem Troponin I RESULT DECREASING; Troponin I 3.041 ng/mL (< 0.028)
[2022-10-09 22:22] LABS: CK (CPK) Greater than 4000 U/L (29-168); Sodium 153 mmol/L (136-145)
[2022-10-09 22:23] LABS: Band 34 % (5-11); Hemoglobin 8.6 g/dL (12.0-16.0); Hypochromia SLIGHT = 6-15 cells (100X) (0-5/hpf); Lymphocytes 11 % (28-48); MDiff Complete? YES; Mean Corpuscular HGB CONC 33.1 g/dL (32.0-36.0); Mean Corpuscular Hemoglobin 29.9 pg (25.0-35.0); Mean Corpuscular Volume 90.2 fl (78.0-98.0); Mean Platelet Volume 14.6 fL (7.4-10.4); Monocytes 4 % (0-4); Neutrophil 51 % (31-61); Platelet Count 10 10x3/uL (130-400); Platelet Morphology Comment Appears Decreased; Red Blood Cell (RBC) Count 2.88 mill/uL (4.00-5.20); White Blood Cell (WBC) Count 13.8 10x3/uL (4.8-10.8)
[2022-10-09] MEDS: Hydrocortisone Sod Succ/PF 100 mg/2 ml Vial IVP SCH (22:24)
[2022-10-10] MEDS: Albuterol Sulfate 2.5 mg/0.5 ml Neb NEB SCH ×4 (02:38→14:42)
[2022-10-10 04:18] LABS: Hemoglobin 7.6 g/dL (12.0-16.0); Mean Corpuscular HGB CONC 33.5 g/dL (32.0-36.0); Mean Corpuscular Hemoglobin 30.3 pg (25.0-35.0); Mean Corpuscular Volume 90.5 fl (78.0-98.0); Mean Platelet Volume 8.4 fL (7.4-10.4); Platelet Count 135 10x3/uL (130-400); RBC Distribution Width 14.2 % (11.5-14.5); White Blood Cell (WBC) Count 14.3 10x3/uL (4.8-10.8)
[2022-10-10 04:27] LABS: INR-International Normal Ratio 1.2; PTT 33.3 sec (22.9-36.1); Prothrombin Time 15.3 sec (12.0-14.7)
[2022-10-10] MEDS ORDERED: Insulin Regular 300 UNITS/3 ML VIAL SC SCH (04:30)
[2022-10-10 04:36] LABS: Lactic Acid 4.2 mmol/L (0.5-2.2)
[2022-10-10 04:41] LABS: CKMB 17.6 ng/mL (0-6.6)
[2022-10-10 04:48] LABS: Critical Call Chem Troponin I RESULT DECREASING; Troponin I 1.119 ng/mL (< 0.028)
[2022-10-10 04:51] LABS: ALT (SGPT) 711 U/L (8-55); AST (SGOT) 787 U/L (5-34); Albumin 3.3 g/dL (3.5-5.0); Alkaline Phosphatase 72 U/L (40-100); Anion Gap 15 mmol/L (10-20); BUN (Urea Nitrogen) 15 mg/dL (7.0-18.7); Bilirubin, Direct 0.5 mg/dL (0.1-0.3); CK (CPK) Greater than 4000 U/L (29-168); Calc. Creatinine Clearance 69 mL/min (70-130); Calcium 8.8 mg/dL (7.8-10.44); Carbon Dioxide 19 mmol/L (22-29); Chloride 131 mmol/L (98-107); Estimated GFR 47; Globulin 2.5 g/dL (2.4-3.5); Glucose 224 mg/dL (70-105); Lipase 694 U/L (8-78); Magnesium 2.2 mg/dL (1.7-2.2); Phosphorus 1.5 mg/dL (2.3-4.7); Potassium 2.9 mmol/L (3.5-5.1); Protein, Total 5.8 g/dL (6.0-8.3); Sodium 162 mmol/L (136-145)
[2022-10-10] MEDS: Piperacillin/Tazobactam 3.375 GM in Sodium Chloride 0.9% 100 ML IVPB SCH ×2 (05:03→12:25)
[2022-10-10] MEDS: Hydrocortisone Sod Succ/PF 100 mg/2 ml Vial IVP SCH ×2 (05:03→13:54)
[2022-10-10 05:04] LABS: Bilirubin Negative (Negative); Blood, Urine Large (Negative); Glucose, Urine (Dipstick) 250 mg/dL (Negative); Ketone, Urine Negative (Negative); Leukocyte Negative (Negative); Nitrite Negative (Negative); Protein, Urine (Dipstick) Trace mg/dL (Neg-Trace); Urobilinogen 0.2 mg/dL (Less than 2)
[2022-10-10 05:06] LABS: Band 25 % (5-11); Hypochromia SLIGHT = 6-15 cells (100X) (0-5/hpf); MDiff Complete? YES; Monocytes 3 % (0-4); Neutrophil 72 % (31-61); Platelet Morphology Comment Appears Adequate
[2022-10-10 05:08] LABS: Actual Bicarbonate (HCO3a) 20.7 mEq/L (22-28); Base Excess (BEa) -3.9 mEq/L (-2.0 to +3.0); CO2 Tension 35.1 mmHg (35.0-45.0); Calcium, Ionized (arterial) 1.25 mmol/L (1.12-1.30); Carboxyhemoglobin (COHb) 0.3 gm% (0.0-3.0); Hemoglobin (Hb) 7.6 g/dL (11.4-15.4); O2 Tension (PaO2), arterial 342.5 mmHg (80.0-100.0); Potassium - ABG Lab 2.89 mmol/L (3.70-5.30); pH, Arterial 7.39 (7.35-7.45)
[2022-10-10 05:09] LABS: ALV-art Gradient -101.175 mmHg (0-20); Puncture Site ARTLINE
[2022-10-10 05:09] LABS: Clarity Clear (Clear); Specific Gravity, Urine 1.019 (1.002-1.036)
[2022-10-10] MEDS: Vasopressin 20 UNIT, Admixture Fee 1 EACH in Sodium Chloride 0.9% 50 ML IV SCH ×2 (05:57→13:54)
[2022-10-10] MEDS ORDERED: HUMULIN R 100 UNITS in Sodium Chloride 0.9% 100 ML IVPB SCH (06:15)
[2022-10-10] MEDS ORDERED: VANCOMYCIN IVPB PRN (09:30)
[2022-10-10] MEDS ORDERED: Vancomycin 1 GM in Premix Bag 1 BAG IVPB SCH (10:00)
[2022-10-10] MEDS: Phenylephrine 40 MG/NS 250 ML 40 MG in Premix Bag 1 BAG IVPB SCH (10:20)
[2022-10-10 10:51] LABS: Lactic Acid 3.5 mmol/L (0.5-2.2)
[2022-10-10 10:55] LABS: Actual Bicarbonate (HCO3a) 22.9 mEq/L (22-28); Base Excess (BEa) -2.2 mEq/L (-2.0 to +3.0); CO2 Tension 40.1 mmHg (35.0-45.0); Calcium, Ionized (arterial) 1.25 mmol/L (1.12-1.30); Carboxyhemoglobin (COHb) 0.3 gm% (0.0-3.0); Hemoglobin (Hb) 7.4 g/dL (11.4-15.4); O2 Tension (PaO2), arterial 477.2 mmHg (80.0-100.0); Potassium - ABG Lab 2.74 mmol/L (3.70-5.30); pH, Arterial 7.37 (7.35-7.45)
[2022-10-10 10:56] LABS: ALV-art Gradient 185.675 mmHg (0-20); Puncture Site Arterial Line
[2022-10-10 11:01] LABS: INR-International Normal Ratio 1.1; Prothrombin Time 15.1 sec (12.0-14.7)
[2022-10-10 11:02] LABS: PTT 30.3 sec (22.9-36.1)
[2022-10-10 11:05] LABS: Hemoglobin 7.4 g/dL (12.0-16.0); Mean Corpuscular HGB CONC 33.3 g/dL (32.0-36.0); Mean Corpuscular Hemoglobin 30.2 pg (25.0-35.0); Mean Corpuscular Volume 90.7 fl (78.0-98.0); Mean Platelet Volume 8.9 fL (7.4-10.4); Platelet Count 116 10x3/uL (130-400); RBC Distribution Width 14.4 % (11.5-14.5); Red Blood Cell (RBC) Count 2.44 mill/uL (4.00-5.20); White Blood Cell (WBC) Count 16.2 10x3/uL (4.8-10.8)
[2022-10-10 11:08] LABS: Band 11 % (5-11); Eosinophils 1 % (0-10); Lymphocytes 3 % (28-48); MDiff Complete? YES; Neutrophil 85 % (31-61); Platelet Morphology Comment Appears Decreased; Polychromasia SLIGHT = 2-3 cells (100X) (0-2/hpf)
[2022-10-10 11:09] LABS: Critical Call Chem Troponin I RESULT DECREASING; Troponin I 0.744 ng/mL (< 0.028)
[2022-10-10 11:10] LABS: CK (CPK) 6849 U/L (29-168)
[2022-10-10 11:23] LABS: ALT (SGPT) 647 U/L (8-55); AST (SGOT) 625 U/L (5-34); Albumin 3.3 g/dL (3.5-5.0); Alkaline Phosphatase 70 U/L (40-100); Anion Gap 12 mmol/L (10-20); BUN (Urea Nitrogen) 13 mg/dL (7.0-18.7); Bilirubin, Direct 0.4 mg/dL (0.1-0.3); Bilirubin, Total 0.7 mg/dL (0.2-1.2); Calc. Creatinine Clearance 75 mL/min (70-130); Calcium 8.8 mg/dL (7.8-10.44); Carbon Dioxide 23 mmol/L (22-29); Chloride 133 mmol/L (98-107); Estimated GFR 53; Globulin 2.4 g/dL (2.4-3.5); Glucose 203 mg/dL (70-105); Lipase 961 U/L (8-78); Magnesium 2.3 mg/dL (1.7-2.2); Phosphorus 1.9 mg/dL (2.3-4.7); Potassium 2.8 mmol/L (3.5-5.1); Protein, Total 5.7 g/dL (6.0-8.3); Sodium 165 mmol/L (136-145)
[2022-10-10] MEDS: Sodium Chloride 0.45% 1,000 ML IV SCH (12:29)
[2022-10-10] MEDS ORDERED: Potassium Chloride 40 MEQ in Premix Bag 1 BAG IVPB SCH (12:30)
[2022-10-10 13:23] LABS: Base Excess (BEa) -3.9 mEq/L (-2.0 to +3.0); Calcium, Ionized (arterial) 1.26 mmol/L (1.12-1.30); Carboxyhemoglobin (COHb) 0.1 gm% (0.0-3.0); Hemoglobin (Hb) 7.2 g/dL (11.4-15.4); O2 Tension (PaO2), arterial 487.6 mmHg (80.0-100.0); Potassium - ABG Lab 3.13 mmol/L (3.70-5.30); pH, Arterial 7.37 (7.35-7.45)
[2022-10-10 13:24] LABS: Puncture Site Arterial Line
[2022-10-10 14:43] VITALS: BP 154/75
[2022-10-10 17:57] VITALS: TEMP 98.2
== END 2022-10-10 17:30 | disposition short-term general hospital (02) ==
LOC: SDC 11:53 → CCU 15:08 → SDC 10-10 17:30
DX: Z00.5 Encounter for examination of potential donor of organ and tissue (principal); I08.1 Rheumatic disorders of both mitral and tricuspid valves
CPT/HCPCS: 36416; 36430; 71045; 81003; 82150; 82248; 82553; 82805; 82977; 83036; 83605; 83690; 83735; 84100; 84484; 85384; 85610; 85730; 86850; 86900; 86901; 87205; 93005; 93010; 93306; 94003; J1720; J1815; J2543; J3370-JW; J3430; J3480; J3490; J7611; P9035